=== PATIENT | male | born 1980 | race Caucasian/White ===

== ENCOUNTER 2017-08-29 15:25 | Emergency (ER) | payer BC, SELFPAY | END 2017-08-29 16:05 | disposition home or self-care (01) | LOC: UTC 15:33 | PROVIDERS: Emergency Provider Nurse Practitioner Family; Family Provider Family Medicine; PCP Family Medicine | DX: Z53.29 Procedure and treatment not carried out because of patient's decision for other reasons (principal) ==

== ENCOUNTER → 2017-09-12 12:57 | Outpatient (CLI) | payer BC, SELFPAY ==
--- NOTE | 2017-09-12 13:04 | XR_ITS ---
XR chest 2V HISTORY: Right-sided chest pain, chest wall pain, right mid pain, cough ITS.REASON: ACUTE CHEST WALL PAIN. ORDERING PHYSICIAN: Marlon Oakes MD PATIENT AGE: 37 years COMPARISON: None available FINDINGS: The heart size is normal. There is some increased density with somewhat lobular contour of the left hilum. Adenopathy or aneurysm could cause this finding. Consider chest CT with contrast for further evaluation. The right hilum has an unremarkable appearance. The lungs are clear. No acute bony anomalies. IMPRESSION: Lobular contour of the left hilum. Aneurysm or adenopathy is a consideration. Consider chest CT with contrast for further evaluation
--- NOTE | 2017-09-12 13:04 | XR_ITS ---
XR ribs RT 2V HISTORY: Right-sided chest pain ITS.REASON: ACUTE CHEST WALL PAIN ORDERING PHYSICIAN: Marlon Oakes MD PATIENT AGE: 37 years COMPARISON: None FINDINGS: Multiple views of the right ribs were obtained. There is a nondisplaced fracture involving the anterior aspect of the right seventh rib. No displaced fracture is apparent. No evidence of pneumothorax. IMPRESSION: Nondisplaced fracture anterior aspect right seventh rib
== END ==
PROVIDERS: PCP Nurse Practitioner Family; Visit Provider Family Medicine
DX: R07.89 Other chest pain (principal)
CPT/HCPCS: 71046; 71100

== ENCOUNTER → 2020-08-12 14:53 | Outpatient (CLI) | payer BC, SELFPAY ==
--- NOTE | 2020-08-12 15:01 | XR_ITS ---
PROCEDURE: XR LUMBAR SPINE MIN 4V CLINICAL INDICATION: DORSALGIA Low back pain COMPARISON: CR LS5 LUMBAR SPINE 5 VIEWS from 09/25/2015 FINDINGS: No fracture or dislocation. No lytic or blastic change. There is normal mineralization. Normal alignment. The disc spaces are well preserved. Other findings:None. IMPRESSION: Negative lumbar spine Dictated by: Feliciano Mcintyre MD 08/12/2020 17:53 Feliciano Mcintyre MD in [place] 08/12/2020 17:53
== END ==
PROVIDERS: PCP Family Medicine; Visit Provider Family Medicine
DX: M54.5 Low back pain (principal)
CPT/HCPCS: 72110

== ENCOUNTER 2020-08-19 14:53 | Emergency (ER) | payer BC, SELFPAY ==
[2020-08-19 15:00] VITALS: BP 150/91; PULSE 84; RESP 19; TEMP 36.8; O2SAT 98; BMI 30.9
--- NOTE | 2020-08-19 15:19 | HMH.EDUTC ---
[facility] [place] Clinical Impression: Nasal congestion, Encounter for laboratory testing for COVID-19 virus Disposition: Home, Self-Care Condition on Discharge: Good Instructions: DI for COVID-19 (Suspected or Confirmed ), Coronavirus Disease 2019, Preventing the Spread of Coronavirus Discharge Instructions, Guaifenesin Additional Instructions: Take medication as prescribed Return if needed FOllow up with Family Doctor if needed Straight to ER if any life threatening symptoms Prescriptions: Fluticasone Propionate [Flonase 50mcg nasal spray 16gm] 1 spr NS DAILY #1 bottle Transmission Status: Pending to [id number] guaiFENesin [Mucinex] 600 mg PO BID PRN #20 tab.er.12h PRN Reason: Cough Transmission Status: Pending to [id number] Referrals: Marlon Oakes MD [Primary Care Provider] - As needed Forms: Work/School Release Time of Disposition: 15:25 Medical Decision Making - Param Inquiry Pt receiving controlled substance: No Param was queried for this patient: No Vital Signs: 08/19/20 15:00 Temperature 98.2 F Temperature Source Oral Pulse Rate [Right Brachial] 84 Respiratory Rate 19 Blood Pressure [Right Arm] 150/91 H Blood Pressure Mean [Right Arm] 110 Blood Pressure Source [Right Arm] Automatic Cuff Blood Pressure Position [Right Arm] Sitting 02 Sat by Pulse Oximetry 98 Oxygen Delivery Method Room Air Orders (Tests/Meds): ORDERS Category Date Time Status Covid-19 Nasal PCR Sendout [facility] 08/19/20 15:08 Ordered [facility] [place] HPI - General Stated complaint: Congestion, headache Time Seen by Provider: 08/19/20 15:20 Mode of Arrival: Ambulatory Source of Information: Patient Limitations: No Limitations Description of Symptoms (Recalled from Triage Doc. by RN): PATIENT C/O NASAL CONGESTION AND HEADACHE SINCE THIS MORNING HEENT Symptoms (Recalled from RN notes): Yes Resp Symptoms (Recalled from RN notes): No Skin Symptoms (Recalled from RN notes): No MS Symptoms (Recalled from RN notes): No Functional Status (Recalled from RN notes): WNL - History of Present Illness Provider Complaint: Patient state that he has been having nasal congestion and headache since this morning States that several people at his work recently tested positive for COVID so work wanted him to come in and get tested for COVID denies fever - Related Data Previous Rx's Medication Instructions Recorded Fluticasone Propionate [Flonase 1 spr NS DAILY #1 bottle 08/19/20 50mcg nasal spray 16gm] guaiFENesin [Mucinex] 600 mg PO BID PRN #20 tab.er.12h 08/19/20 Allergies Allergy/AdvReac Type Severity Reaction Status Date / Time Penicillins Allergy Verified 08/19/20 15:14 - Worker's Comp Is this a Worker's Comp case?: No [facility] History - Hepatitis A Screen Drug use history?: No High risk sexual behaviors?: No History of sexually transmitted infection?: No Currently employed?: No Childcare worker?: No Do you have indoor plumbing?: Yes Do you have electricity?: Yes Attestation statement:: This patient has been screened for Hepatitis A risk factors. I have reviewed the patient's past medical history: Yes - Social History Alcohol Intake: never Occupational Status: other ROS Obtained: Yes All systems reviewed & no additional complaints, Yes Systems reviewed as appropriate & no additional complaints - Constitutional Constitutional: Reports system reviewed and no additional complaints, except as docu, Reports headache(s) - ENT Ears, Nose, Mouth, and Throat: Reports nasal congestion - Cardiovascular Cardiovascular: Reports system reviewed and no additional complaints, except as docu Physical Exam - General General appearance: alert, in no apparent distress - Expanded ENT Exam Nose exam: Present: other (Reports congestion no tenderness) - Respiratory Respiratory exam: Present: normal lung sounds bilaterally. Absent: respiratory distress - Cardiovascular Card
[2020-08-19 15:23] VITALS: BP 150/91; PULSE 84; RESP 19; TEMP 36.8; O2SAT 98
[2020-08-21 10:04] LABS: Covid-19 Nasal PCR Sendout P&C Negative
== END 2020-08-19 15:25 | disposition home or self-care (01) ==
PROVIDERS: Emergency Provider Nurse Practitioner; PCP Family Medicine
DX: Z20.822 Contact with and (suspected) exposure to COVID-19 (principal); R51.9 Headache, unspecified
CPT/HCPCS: 99202; G0463; U0004

== ENCOUNTER → 2020-08-29 10:24 | Outpatient (CLI) | payer BC, SELFPAY ==
--- NOTE | 2020-08-29 10:34 | US_ITS ---
PROCEDURE: US TESTICULAR CLINICAL INDICATION: SCROTAL CYST Follow-up scrotal cyst, history of scrotal cyst COMPARISON: No exams were available for comparison FINDINGS: The right testicle measures 5 x 2.6 x 3 cm. There is homogeneous echogenicity. No stone intra testicular mass. There is blood flow noted. Along the anterior and mid aspect of the right testicle there is a 5 x 2 mm cyst. The epididymis has an unremarkable appearance. The left testicle measures 5 x 2 x 3 cm with homogeneous echogenicity. Blood flow is present. No mass. No hydrocele varicocele or spermatocele apparent. IMPRESSION: 5 x 2 mm cyst along the superficial and anterior aspect of the right testicle otherwise negative scrotal ultrasound Dictated by: Feliciano Mcintyre MD 08/29/2020 12:57 Feliciano Mcintyre MD in [place] 08/29/2020 12:57
== END ==
PROVIDERS: PCP Family Medicine; Visit Provider Family Medicine
DX: L72.9 Follicular cyst of the skin and subcutaneous tissue, unspecified (principal)
CPT/HCPCS: 76870

== ENCOUNTER → 2021-08-24 13:35 | Outpatient (CLI) | payer BC, SELFPAY | PROVIDERS: Visit Provider Nurse Practitioner | DX: Z20.822 Contact with and (suspected) exposure to COVID-19 (principal) | CPT/HCPCS: C9803; U0003; U0005 ==

== ENCOUNTER → 2021-12-01 12:49 | Outpatient (POV) | payer BC, SELFPAY | PROVIDERS: Visit Provider Dermatology | DX: Z00.00 Encounter for general adult medical examination without abnormal findings (principal) ==

== ENCOUNTER 2022-12-18 00:25 | Emergency (ER) | payer BC, SELFPAY ==
--- NOTE | 2022-12-18 00:25 | ECG_ITS ---
APPROVED REPORT Exam: Resting ECG HR:91 bpm ECG Measurements Heart Rate 91 AXES MD 209 P 42 QRSd 104 QRS 32 QT 353 T 28 QTc 402 Conclusion SINUS RHYTHM INDETERMINATE AXIS ABNORMAL ECG UNCONFIRMED REPORT Electronically signed by : Tyrel Roberts MD 12/20/2022 20:24:28
[2022-12-18 00:26] VITALS: BP 171/99; PULSE 71; RESP 19; TEMP 36.6; O2SAT 97; BMI 26.4
--- NOTE | 2022-12-18 00:31 | XR_ITS ---
PROCEDURE INFORMATION: Exam: XR Chest Exam date and time: 12/18/2022 12:36 AM Age: 42 years old Clinical indication: Pain; Chest pressure; Additional info: Chest pain TECHNIQUE: Imaging protocol: Radiologic exam of the chest. Views: 2 views. COMPARISON: CR CXR2V XR chest 2V 08/19/2018 8:53 PM FINDINGS: Lungs: Unremarkable. No consolidation. Pleural spaces: Unremarkable. No pleural effusion. No pneumothorax. Heart/Mediastinum: Unremarkable. No cardiomegaly. Bones/joints: Unremarkable. IMPRESSION: No acute findings.
[2022-12-18 00:41] LABS: Basophils # 0.1 K/mm3 (0-0.2); Basophils % 0.3 % (0.1-2.0); Eosinophils # 0.2 K/mm3 (0.0-0.4); Eosinophils % 1.1 % (0.1-12.0); Hematocrit 44.5 % (42.0-52.0); Hemoglobin 14.7 g/dL (14.1-18.0); Lymphocytes # 2.3 K/mm3 (0.7-4.5); Lymphocytes % 14.8 % (10-50); Mean Corpuscular HGB Conc 32.9 g/dL (31.8-35.4); Mean Corpuscular Hemoglobin 28.2 pg (27.0-31.2); Mean Corpuscular Volume 85.5 fl (80-94); Mean Platelet Volume 7.4 fl (7.4-10.4); Monocytes # 0.2 K/mm3 (0.1-1.0); Monocytes % 1.5 % (1.7-9.3); Neutrophils # 12.6 K/mm3 (1.8-7.8); Neutrophils % 82.3 % (37.0-80.0); Platelet Count 280 K/mm3 (142-424); Red Blood Count 5.21 M/mm3 (4.60-6.20); Red Cell Distribution Width 13.6 % (11.5-17.5); White Blood Count 15.3 K/mm3 (4.8-10.8)
[2022-12-18 00:45] LABS: MANUAL DIFFERENTIAL MANUAL DIFFERENTIAL (MANUAL DIFF)
[2022-12-18 00:46] LABS: Chloride 96 mmol/L (98-107)
[2022-12-18 00:47] LABS: Potassium 3.5 mmoL/L (3.5-5.1); Sodium 141 mmol/L (136-145)
[2022-12-18 00:49] LABS: Alanine Aminotransferase 36 U/L (12-78); Albumin Level 4.5 g/dl (3.5-5.0); Alkaline Phosphatase 66 U/L (38-126); Amylase 73 U/L (30-110); Anion Gap 17.5 mEq/L (5-15); Aspartate Amino Transferase 40 U/L (17-59); Bilirubin,Total 0.4 mg/dl (0.2-1.3); Blood Urea Nitrogen 12 mg/dl (9-20); Carbon Dioxide 31 mmol/L (22.0-30.0); Creatinine Clearance Estimated 136 mL/min (50-200); Estimated Glomerular Filt Rate 93 ml/min (>60); GFR (African American) 113 ML/MIN (>60)
[2022-12-18 00:50] LABS: Albumin/Globulin Ratio 1.5 (1.1-1.8); Calcium 9.7 mg/dl (8.4-10.2); Glucose 98 mg/dl (74-100); Lipase 133 U/L (23-300); Total Protein,Serum 7.5 g/dl (6.3-8.2)
[2022-12-18 01:00] VITALS: BP 128/85; PULSE 100; RESP 22; O2SAT 95
[2022-12-18 01:06] LABS: Troponin I < 0.01 ng/ml (0.00-0.034)
[2022-12-18 01:09] LABS: Lymphocytes % 20 % (10-50); Monocytes % 1 % (2-9); Neutrophils % 78 % (42-76); Platelet Estimate Normal; Total Cells Counted 100
[2022-12-18 01:10] LABS: RBC Morphology Normal
[2022-12-18 01:30] VITALS: BP 132/74; PULSE 96; RESP 20; O2SAT 96
--- NOTE | 2022-12-18 01:33 | HMH.EDCP ---
Discharge Plan Disposition Patient Disposition: Home, Self-Care Chief Complaint: Chest Pain Prescriptions Prescriptions: No Action fenofibrate 40 mg Tablet 40 mg PO DAILY losartan 100 mg tablet 100 mg PO DAILY Rx Instructions: Take 1 tablet by mouth once daily Referrals Follow up/Referrals: Provider,Referral, MD [Primary Care Provider] - See instructions Clinical Impressions Clinical Impression: Chest pain Instructions Patient Instructions: DI for Chest Pain Discharge ED Provider: Sunny (ED)Luis F Chest Pain HPI General Chief Complaint: Chest Pain Stated Complaint: Chest Pain Time Seen by Provider: 12/18/22 01:33 Mode of Arrival: Family Vehicle Source of Information: Patient and Medical Record Limitations: No Limitations Description of Symptoms (Recalled from ER Triage Doc. by RN): 42 yo male presents with chief complaint of midsternal chest pain that has radiated up into his left shoulder and causing his left arm to feel funny . States he had ate a ham sandwich and noticed he began having chest discomfort afterwards. PMH: hypertension, high cholesterol. Chews tobacco. No recent illness. Denies any nause/vomiting/diarrhea. Afebrile. History of Present Illness HPI narrative: pt with episode of lt sided chest pain with rad to lt upper ext - no known ht dis but uses tob and has htn and pos fh - has seen card in past but has not had gxt - MD complaint: chest pain indicative of cardiac Onset (ago): hour(s) Duration: intermittent Activity at onset: during rest and after eating Pain location: left chest Severity: moderate Quality: aching Pain radiation: LUE Risk Factors for CAD: Hypertension, Hypercholesterolemia, Family Hx of CAD and Smoking Treatments prior to or on arrival for Cardiac Chest Pain: none SUSANNE Score for Non-Stemi Age of Patient: 40-49 years old Heart Rate: 90-109 bpm Systolic Blood Pressure: 120-139 mmhg Serum Creatinine: 0.80-1.19 mg/dl CHF Killip Class: I-No CHF Other Risk Factors: None Non-Stemi Risk Score: 81 Risk Stratification: 1-108 = Low Risk Related Data Home Medications Medication Instructions Recorded Confirmed fenofibrate 40 mg tablet 40 mg PO DAILY High cholesterol 12/18/22 12/18/22 losartan 100 mg tablet 100 mg PO DAILY High blood pressure 12/18/22 12/18/22 Allergies Allergy/AdvReac Type Severity Reaction Status Date / Time Penicillins Allergy Verified 06/29/22 13:38 PFSH PFSH Disclaimer: The information contained in this section may have been updated after the patient was seen, as this information can be updated by other users. Social History (Updated 06/29/22 @ 13:37 by Letha Sterling) Smoking Status: Unknown if ever smoked alcohol intake: never current occupational status: other Travel in the last 8 weeks: None ROS Obtained: Yes All systems reviewed & no additional complaints except as documented Physical Exam General General appearance: alert Head Head exam: normocephalic Eye Eye exam: Present PERRL and EOMI ENT ENT exam: Present mucous membranes moist Neck Neck exam: Present trachea midline Respiratory Respiratory exam: Present normal lung sounds bilaterally; Absent respiratory distress Cardiovascular Cardiovascular exam: Present regular rate; Absent systolic murmur or rubs Abdominal Exam Abdominal exam: Present soft Extremities Exam Extremities exam: Present full ROM Neurological Exam Neurological exam: Present alert, oriented X3 and CN II-XII intact; Absent motor sensory deficit Psychiatric Psychiatric exam: Present normal affect Skin Skin exam: Absent rash Medical Decision Making Medical Records Medical records reviewed: Yes I reviewed the patient's medical records. Param Inquiry Pt receiving controlled substance: No Vital Signs: 12/18/22 00:26 12/18/22 01:00 12/18/22 01:30 Temperature 97.8 F Temperature Source Oral Pulse Rate 100 H 96 H Pulse Rate [Right Brachial] 71 Respiratory
[2022-12-18 02:00] VITALS: BP 138/85; PULSE 93; RESP 22; O2SAT 97
--- NOTE | 2022-12-18 02:27 | PC.NURSE ---
Updated patient. Advised him that we need to draw a 2nd troponin at 0315 and the results would be back typically within that hour and we could redetermine what the best course of action would be. Patient verbalized understanding. Patient asked that the head of the bed be lowered so he could rest. Patient offered a pillow and blanket but refused. Will continue to monitor.
[2022-12-18 04:04] LABS: Troponin I < 0.01 ng/ml (0.00-0.034)
[2022-12-18 04:22] VITALS: BP 156/79; PULSE 91; RESP 19; TEMP 36.8; O2SAT 98
== END 2022-12-18 04:26 | disposition home or self-care (01) ==
PROVIDERS: Emergency Provider Emergency Medicine; PCP Family Medicine
DX: R07.9 Chest pain, unspecified (principal); M25.512 Pain in left shoulder; I10 Essential (primary) hypertension
CPT/HCPCS: 71046; 80053; 82150; 83690; 84484; 85007; 85025; 93005; 96374; 96375; 99285; J0131

== ENCOUNTER → 2023-01-11 12:53 | Outpatient (CLI) | payer BC, SELFPAY ==
[2023-01-11 13:36] LABS: Basophils # 0.1 K/mm3 (0-0.2); Basophils % 0.6 % (0.1-2.0); Eosinophils # 0.1 K/mm3 (0.0-0.4); Eosinophils % 0.8 % (0.1-12.0); Hematocrit 43.8 % (42.0-52.0); Hemoglobin 14.2 g/dL (14.1-18.0); Lymphocytes # 2.7 K/mm3 (0.7-4.5); Lymphocytes % 35.1 % (10-50); Mean Corpuscular HGB Conc 32.3 g/dL (31.8-35.4); Mean Corpuscular Hemoglobin 27.6 pg (27.0-31.2); Mean Corpuscular Volume 85.3 fl (80-94); Mean Platelet Volume 7.5 fl (7.4-10.4); Monocytes # 0.4 K/mm3 (0.1-1.0); Monocytes % 5.3 % (1.7-9.3); Neutrophils # 4.5 K/mm3 (1.8-7.8); Neutrophils % 58.2 % (37.0-80.0); Platelet Count 295 K/mm3 (142-424); Red Blood Count 5.14 M/mm3 (4.60-6.20); Red Cell Distribution Width 13.6 % (11.5-17.5); White Blood Count 7.7 K/mm3 (4.8-10.8)
[2023-01-11 14:17] LABS: Alanine Aminotransferase 27 U/L (12-78); Albumin Level 4.8 g/dl (3.5-5.0); Alkaline Phosphatase 75 U/L (38-126); Anion Gap 15.8 mEq/L (5-15); Aspartate Amino Transferase 25 U/L (17-59); Bilirubin,Indirect 0.4 mg/dL (0.0-0.9); Bilirubin,Total 0.4 mg/dl (0.2-1.3); Bilirubin,Unconjugated 0.6 mg/dL (0.0-1.1); Blood Urea Nitrogen 11 mg/dl (9-20); Calcium 9.5 mg/dl (8.4-10.2); Carbon Dioxide 30 mmol/L (22.0-30.0); Chloride 102 mmol/L (98-107); Chol/HDL Ratio 5.4 (1-3.5); Cholesterol 188 mg/dl (140-200); Estimated Glomerular Filt Rate 107 ml/min (>60); GFR (African American) 130 ML/MIN (>60); Glucose 89 mg/dl (74-100); HDL Cholesterol 35 mg/dl (40-60); Potassium 4.8 mmoL/L (3.5-5.1); Sodium 143 mmol/L (136-145); Total Protein,Serum 7.6 g/dl (6.3-8.2); Triglycerides 215 mg/dl (30-150); VLDL Cholesterol 43 mg/dL (0-40)
[2023-01-11 14:30] LABS: Free T4 (Free Thyroxine) 1.15 ng/dl (0.78-2.19)
[2023-01-11 14:48] LABS: Thyroid Stimulating Hormone 1.24 uIU/mL (0.465-4.68)
== END ==
PROVIDERS: PCP Family Medicine; Visit Provider Internal Medicine
DX: R07.9 Chest pain, unspecified (principal); R06.00 Dyspnea, unspecified; R07.89 Other chest pain; I11.9 Hypertensive heart disease without heart failure; E78.5 Hyperlipidemia, unspecified; I63.9 Cerebral infarction, unspecified; E11.9 Type 2 diabetes mellitus without complications; Z82.49 Family history of ischemic heart disease and other diseases of the circulatory system
CPT/HCPCS: 36415; 80048; 80061; 80076; 84439; 84443; 85025

== ENCOUNTER → 2023-01-20 06:23 | Outpatient (CLI) | payer BC, SELFPAY ==
--- NOTE | 2023-01-20 06:28 | NM_ITS ---
APPROVED REPORT Exam: Nuclear Stress Test Indication: HTN, HYPERLIPIDEMIA, TOB USE, FM HX, C.P., FTIGUE Patient Location: Outpatient Stress Tech: Aziza Garces ME Tech:Arianne Doan LUCRECIA RT(R)(N) Ht: 6 ft 1 in Wt: 230 lbs HR: 70 bpm BP: 128/90 mmHg BSA: 2.28 m2 TID: 1.02 BMI: 30.3 History: HTN, HYPERLIPIDEMIA, TOB USE, FM HX, C.P., FTIGUE Procedure: Patient exercised on Dave protocol 10:30 minutes and sec, resting heart rate 70 bpm, resting blood pressure 128/90 mmHg, with exercise maximum heart rate achived was 162 bpm which is 90 % of the maximum predicted heart rate and blood pressure was 190/84 mmHg. Test was stopped due to FATIGUE. Patient denied any complaint of chest pain. Patient has exercise capacity, achieved 12.8 METs of workload on treadmill, the blood pressure response to exercise was . Cardiac Stress and Resting SPECT Images: Cardiac Stress and Resting SPECT images were obtained using technetium 99m Myoview 30.3 mCi stress and 10.55 mCi at rest. Resting and stress imaging in both supine and prone positions demonstrate large sized, moderate, fixed perfusion defect in the basal to mid anterior LV wall. There is also a medium sized, mild, fixed perfusion defect in the basal to mid inferior LV wall. Gated imaging demonstrates low normal global LV systolic function. There is mild hypokinesis in the basal to mid anterior and inferior LV lara. LVEF is calculated at 50%. Conclusion: Large sized, moderate, fixed perfusion defect in the basal to mid anterior LV wall. There is also a medium sized, mild, fixed perfusion defect in the basal to mid inferior LV wall. No evidence of reversible ischemia. Gated imaging demonstrates low normal global LV systolic function. There is mild hypokinesis in the basal to mid anterior and inferior LV lara. LVEF is calculated at 50%. Electronically signed by : Bia Carlson, 01/23/2023 23:19:30
--- NOTE | 2023-01-20 09:54 | CA_ITS ---
APPROVED REPORT Exam: Exercise Treadmill Technologist: Aziza Dickerson, Ht: 6 ft 1 in Wt: 229 lbs BSA: 2.28 m2 HR: 65 bpm BP: 134/89 mmHg Rhythm: NSR Medical History Medications: Losartan,,,,, HCTZ,,,,, FeNOfibrate,,,,, Stress Test Details Test: Dave HR Resting HR: 70 bpm Max Heart Rate (APMHR): 180 bpm Max HR Achieved: 162 bpm Target HR (85% APMHR): 153 bpm % of APMHR: 90 Recovery HR: 82 bpm HR response to stress: Normal HR response to stress BP Resting BP: 128.0/90.0 mmHg Max BP: 190.0/84.0 mmHg Recovery BP: 148.0/72.0 mmHg BP response to stress: Normal blood pressure response to stress. ECG Resting ECG: NSR, possible old inferior MS Stress ECG: No change Arrhythmia: PVCs Recovery ECG: No change Recovery Arrhythmia: PVCs Clinical Exercise duration: 10:30 min Highest Stage Achieved: IV Exercise capacity: 12.8 METs Overall Exercise Capacity for Age: Good Stress ECG Conclusion The patient exercised for 10:30 on Dave Protcol, exhibiting a total of 12.8 METS. He has good exercise capacity compared to his age and sex matched peers. He demonstrated normal HR and BP response to exercise. Max HR: 155 % of PM: 86% Max BP: 190/84 METs: 12.8 Test stopped due to: SOA Symptoms: No CP. Arrhythmias/Ectopy: Occasional PVCs during stress and at recovery. ST-T Changes: No significant changes at peak stress. Conclusion: Normal GXT. Occasional PVCs were noted. Myoview images reported separately. Test Summary REST . . . . . . . Sitting REST . . . . . . . Standing REST 05:42 0.0 0.0 70 . 128/ 90 . . Stage 1 01:00 10.0 1.7 87 . . . . Stage 1 02:00 10.0 1.7 90 . . . . Stage 1 03:00 10.0 1.7 88 . 154/ 88 . . Stage 2 01:00 12.0 2.5 98 . . . . Stage 2 02:00 12.0 2.5 101 . . . . Stage 2 03:00 12.0 2.5 104 . 164/ 88 . . Stage 3 01:00 14.0 3.4 115 . . . . Stage 3 02:00 14.0 3.4 124 . . . . Stage 3 03:00 14.0 3.4 133 . 190/ 84 . . Stage 4 01:00 16.0 4.2 146 . . . . Stage 4 01:30 16.0 4.2 154 . . . Stop exercise at 10:30 RECOVERY 01:00 0.0 0.0 140 . . . . RECOVERY 02:00 0.0 0.0 115 . . . . RECOVERY 03:00 0.0 0.0 101 . 184/ 77 . . RECOVERY 04:00 0.0 0.0 87 . 183/ 77 . . RECOVERY 05:00 0.0 0.0 81 . 183/ 77 . . RECOVERY 05:49 0.0 0.0 89 . 148/ 72 . . Electronically signed by : Bia Carlson, 01/23/2023 23:14:44
== END ==
LOC: RAD 06:23
PROVIDERS: PCP Family Medicine; Visit Provider Physician Assistant
DX: R07.89 Other chest pain (principal); R07.9 Chest pain, unspecified; I10 Essential (primary) hypertension; E78.5 Hyperlipidemia, unspecified; Z82.49 Family history of ischemic heart disease and other diseases of the circulatory system
CPT/HCPCS: 78452; 93017; A9502

== ENCOUNTER → 2023-02-08 10:09 | Outpatient (CLI) | payer BC, SELFPAY | LOC: RT 10:09 | PROVIDERS: PCP Family Medicine; Visit Provider Internal Medicine | DX: R07.89 Other chest pain (principal); I10 Essential (primary) hypertension; E78.5 Hyperlipidemia, unspecified; Z82.49 Family history of ischemic heart disease and other diseases of the circulatory system | CPT/HCPCS: 93306 ==

== ENCOUNTER → 2023-03-02 07:04 | Outpatient (CLI) | payer BC, SELFPAY ==
[2023-03-02 07:38] VITALS: BP 128/65; PULSE 79; RESP 17; TEMP 36.4; O2SAT 97
[2023-03-02 07:40] VITALS: BP 128/65; PULSE 68; RESP 18; O2SAT 97; BMI 30.3
[2023-03-02 08:09] LABS: Chloride 105 mmol/L (98-107); Potassium 3.6 mmoL/L (3.5-5.1); Sodium 141 mmol/L (136-145)
[2023-03-02 08:10] VITALS: BP 141/88; PULSE 62; RESP 18; O2SAT 94
[2023-03-02 08:12] LABS: Anion Gap 11.6 mEq/L (5-15); Blood Urea Nitrogen 15 mg/dl (9-20); Carbon Dioxide 28 mmol/L (22.0-30.0); Creatinine Clearance Estimated 181 mL/min (50-200); Estimated Glomerular Filt Rate 107 ml/min (>60); GFR (African American) 130 ML/MIN (>60)
[2023-03-02 08:13] LABS: Calcium 9.3 mg/dl (8.4-10.2); Glucose 102 mg/dl (74-100)
[2023-03-02 08:35] VITALS: BP 126/79; PULSE 60; RESP 18; O2SAT 97
== END ==
LOC: RAD 07:04
PROVIDERS: PCP Family Medicine; Visit Provider Nurse Practitioner
DX: R07.89 Other chest pain (principal); I10 Essential (primary) hypertension; E78.5 Hyperlipidemia, unspecified; Z82.49 Family history of ischemic heart disease and other diseases of the circulatory system
CPT/HCPCS: 75574; 80048; Q9967

== ENCOUNTER → 2024-03-23 13:23 | Outpatient (CLI) | payer BC, SELFPAY | LOC: SL 13:24 | PROVIDERS: PCP Family Medicine; Visit Provider Family Medicine | DX: G47.33 Obstructive sleep apnea (adult) (pediatric) (principal) | CPT/HCPCS: G0399 ==

== ENCOUNTER 2024-10-29 18:40 | Emergency (ER) | payer BC, SELFPAY ==
[2024-10-29 18:51] VITALS: BP 150/98; PULSE 51; RESP 18; TEMP 36.8; O2SAT 100; BMI 31.5
--- NOTE | 2024-10-29 18:56 | PC.NURSE ---
Esdras SIMMS getting ekg on patient due to HR varying from low 40s to 70s
--- NOTE | 2024-10-29 18:58 | ECG_ITS ---
APPROVED REPORT Exam: Resting ECG HR:77 bpm ECG Measurements Heart Rate 77 AXES DC 187 P 4 QRSd 103 QRS -13 QT 407 T 11 QTc 438 Conclusion SINUS RHYTHM WITH FREQUENT VENTRICULAR PREMATURE COMPLEXES INDETERMINATE AXIS INFERIOR MYOCARDIAL INFARCTION , PROBABLY OLD [40+ ms Q WAVE AND/OR ST/T ABNORMALITY IN II/aVF] ABNORMAL ECG UNCONFIRMED REPORT Electronically signed by : Murphy Villalba, 10/29/2024 23:18:48
--- NOTE | 2024-10-29 19:16 | CT_ITS ---
PROCEDURE INFORMATION: Exam: CT Lumbar Spine Without Contrast Exam date and time: 10/29/2024 7:32 PM Age: 44 years old Clinical indication: Low back pain; Additional info: Sudden midline L spine pain, no trauma TECHNIQUE: Imaging protocol: Computed tomography of the lumbar spine without contrast. Radiation optimization: All CT scans at this facility use at least one of these dose optimization techniques: automated exposure control; mA and/or kV adjustment per patient size (includes targeted exams where dose is matched to clinical indication); or iterative reconstruction. COMPARISON: CR XR LUMBAR SPINE MIN 4V 08/12/2020 3:27 PM FINDINGS: Bones/joints: Five lumbar type vertebral bodies. Vertebral body heights and lateral alignment maintained. No destructive bony lesion. Lumbar disc heights maintained. Mild facet degeneration in the lower lumbar facet joints. Grossly the central spinal canal and neural foramina are adequate in the lumbar region. At the L4-L5 level there is a shallow central disc bulge without spinal canal or neural foraminal stenosis. At the L5-S1 level there is a shallow central disc bulge without spinal canal or neural foraminal stenosis. Soft tissues: Unremarkable. Surgical clip right abdomen noted. IMPRESSION: 1. Vertebral body heights and lateral lumbar alignment maintained. No destructive bony lesion identified. 2. Mild facet degeneration in the lower lumbar facet joints. Lumbar disc heights relatively maintained. 3. Grossly the central spinal canal and neural foramina are adequate in the lumbar region.
--- NOTE | 2024-10-29 19:20 | ED_ITS ---
Discharge Plan Disposition Patient Disposition: Home, Self-Care Prescriptions Prescriptions: New lidocaine 4 % adhesive patch,medicated 1 patch topical DAILY Qty: 5 0RF Rx Instructions: may leave on for up to 12 hrs ibuprofen 800 mg tablet 800 mg PO TID PRN (Reason: pain) 7 Days Qty: 20 0RF prednisone 50 mg tablet 50 mg PO DAILY 5 Days Qty: 5 0RF Rx Instructions: Please begin 1 day after ED visit cyclobenzaprine 5 mg tablet 5 mg PO TID PRN (Reason: muscle spasm) 5 Days Qty: 15 0RF No Action hydrochlorothiazide 12.5 mg tablet 12.5 mg PO DAILY Patient Comments: TAKE 1 TABLET BY MOUTH ONCE DAILY fenofibrate 40 mg Tablet 40 mg PO DAILY losartan 100 mg tablet 100 mg PO DAILY Rx Instructions: Take 1 tablet by mouth once daily Referrals Follow up/Referrals: Marlon Oakes MD [Primary Care Provider] - See instructions Activity Restrictions/Add. Instructions Additional Instructions/Restrictions: No evidence of an emergent medical condition identified today. Your working diagnosis is a musculoskeletal/myofascial strain. No evidence that you have any type of central [employer] [employer]IC[employer] compression that would require emergent MRI or emergent neurosurgical intervention. Please return with symptoms that we discussed. Otherwise follow-up with your primary care doctor if you are having persistent symptoms beyond a few weeks I recommend discussing getting an outpatient MRI. Otherwise this should be self-limiting. I do recommend that she rest apply ice and take symptomatic medications as discussed. Clinical Impressions Clinical Impression: Lumbar spine pain Print Language Print Language: Barb[place] Discharge ED Provider: Jhon Villalba General Adult HPI General Chief complaint: PAIN Stated complaint: lower back pain no injury Time Seen by Provider: 10/29/24 19:02 Mode of Arrival: Ambulatory Source of Information: Patient Description of Symptoms (Recalled from ER Triage Doc. by RN): Pt presents for evaluation of mid lower back pain that started at 2pm that has progressively become worse. Pt states has had episodes of this happening before, denies any injuries. History of Present Illness HPI narrative: Patient is a 44-year-old male presenting today with sudden midline lower lumbar back pain that started at around 2 PM. No definitive injury that he is aware of. States he has been having intermittent episodes over the last 6 months but usually is paraspinal in nature. Patient denies any bowel or bladder incontinence saddle anesthesia lower extremity paralysis history of injection drug use fever or cancer. Denies any other symptoms such as urinary symptoms fevers hematuria etc. Pain is worse with movement or touch. Related Data Home Medications ?Medication ?Instructions ?Recorded ?Confirmed fenofibrate 40 mg tablet 40 mg PO DAILY High cholesterol 12/18/22 03/02/23 losartan 100 mg tablet 100 mg PO DAILY High blood pressure 12/18/22 03/02/23 hydrochlorothiazide 12.5 mg tablet 12.5 mg PO DAILY High Blood 01/11/23 03/02/23 Pressure Previous Rx's ?Medication ?Instructions ?Recorded cyclobenzaprine 5 mg tablet 5 mg PO TID PRN muscle spasm 5 10/29/24 days #15 tabs ibuprofen 800 mg tablet 800 mg PO TID PRN pain 7 days #20 10/29/24 tabs lidocaine 4 % topical patch 1 patch topical DAILY #5 ea 10/29/24 prednisone 50 mg tablet 50 mg PO DAILY 5 days #5 tabs 10/29/24 Allergies Allergy/AdvReac Type Severity Reaction Status Date / Time Penicillins Allergy Verified 02/17/23 09:45 [facility] Disclaimer: The information contained in this section may have been updated after the patient was seen, as this information can be updated by other users. Medical History (Updated 10/29/24 @ 19:17 by Jhon Villalba MD) History of COVID-19 Irritable bowel syndrome (IBS) Hyperlipidemia Hypertension Surgical History (Updated 03/02/23 @ 07:34 by Karyn Su RN) History of appendectomy Family History (Updated 03/02/23 @ 07:34 by Karyn Su RN) Father Family history of myocardial infarction Family history of diabetes mellitus type II Mother Family history of stroke Social History (Updated 03/02/23 @ 07:36 by Karyn Su RN) Smoking Status: Current every day smoker tobacco type: smokeless tobacco alcohol intake: former current occupational status: employed Travel in the last 8 weeks: Inside the [place] Have you lived/traveled outside [place] in past 30 days?: No Contact w/someone who lives/traveled outside [place] past 30 days?: No Exposure to someone with infectious disease in past 14 days?: No Do you have a fever (greater than 100.4 F or 38 C)?: No Have you tested positive for COVID-19: No Exposed to someone with COVID-19 in past 14 days?: No Do you have a sore throat?: No Do you have a cough?: No Do you have any weakness?: No Do you have any diarrhea?: No Are you experiencing any unusual bleeding?: No Do you have any muscle aches/pain?: No Do you have any abdominal pain?: No Are you experiencing loss of taste or smell?: No Other Medical History Have you received the Flu Vaccine for this season: No Have you received the Pneumonia Vaccine: No ROS Obtained: Yes All systems reviewed & no additional complaints except as documented Physical Exam General General appearance: alert and in no apparent distress Respiratory Respiratory exam: Present normal lung sounds bilaterally Cardiovascular Cardiovascular exam: Present regular rate Back Exam Back 1 view image: 2 1. ttp no step-offs or deformities neurovasc intact distally good strength throughout no saddle anesthesia Neurological Exam Neurological exam: Present alert and oriented X3 Medical Decision Making Medical Records Screening: Per USPSTF and CDC recommendations, given the prevalence of disease in our region, it is our hospital?s policy to screen for HIV and viral Hepatitis for all patients aged 18 and over and those with ongoing risk factors. Param Inquiry Pt receiving controlled substance: No Vital Signs: 10/29/24 18:51 10/29/24 20:00 10/29/24 20:31 Temperature 98.3 F Temperature Source Oral Pulse Rate 83 75 Pulse Rate [Right] 51 L Respiratory Rate 18 25 H 22 Blood Pressure 153/93 H 121/75 Blood Pressure [Right Arm] 150/98 H Blood Pressure Mean [Right Arm] 115 Blood Pressure Source [Right Arm] Automatic Cuff Blood Pressure Position [Right Arm] Sitting 02 Sat by Pulse Oximetry 100 97 96 Oxygen Delivery Method Room Air Orders (Tests/Meds): ED MEDICATIONS Discontinued Medications Generic Name Dose Route Start Last Admin Trade Name Vincentq PRN Reason Stop Dose Admin Cyclobenzaprine HCl 5 mg 10/29/24 19:16 10/29/24 19:37 Cyclobenzaprine 10mg Tablet PO 10/29/24 19:17 5 mg ONCE ONE Administration Ketorolac Tromethamine 30 mg 10/29/24 19:16 10/29/24 19:36 Ketorolac 30mg/Ml Vial IM 10/29/24 19:17 30 mg ONCE ONE Administration Lidocaine 1 each 10/29/24 19:16 10/29/24 19:36 Lidocaine 5% Transdermal Patch TD 10/29/24 19:17 1 each ONCE ONE Administration Prednisone 60 mg 10/29/24 19:16 10/29/24 19:37 Prednisone 20mg Tab PO 10/29/24 19:17 60 mg ONCE ONE Administration ORDERS Category Date Time Status CT lumbar spine wo con Stat Cat Scan 10/29/24 19:16 Completed Medical Decision Narrative: 44-year-old presents today with above history and physical. Has midline nontraumatic lumbar spine tenderness. Unlikely has a pathologic fracture or significant bony abnormality but given his midline tenderness we will get a CT scan for further evaluation and management. He has no indication for an emergency MRI as he has no red flags from history of physical standpoint to suggest any type of central [facility] [employer]NICIAN compression such as cauda equina syndrome. Symptomatic medications will be given while the CT is pending. Will reassess shortly. Reassessment 9:10 PM I personally interpreted the patient CT scan and I see no evidence of any acute abnormality from the emergency standpoint. Radiology read is consistent with this as well. Return precautions emphasized patient discharged in stable condition with advised to follow-up with primary care doctor. Critical Care Critical Care Time Critical Care Time: No
[2024-10-29] MEDS: KETOROLAC 30MG/ML VIAL 30 MG IM (19:36)
[2024-10-29] MEDS: LIDOCAINE 5% TRANSDERMAL PATCH 1 EACH TD (19:36)
[2024-10-29] MEDS: CYCLOBENZAPRINE 10MG TABLET 5 MG PO (19:37)
[2024-10-29] MEDS: predniSONE 20MG TAB 60 MG PO (19:37)
[2024-10-29 20:00] VITALS: BP 153/93; PULSE 83; RESP 25; O2SAT 97
[2024-10-29 20:31] VITALS: BP 121/75; PULSE 75; RESP 22; O2SAT 96
[2024-10-29 21:12] VITALS: BP 151/94; PULSE 97; RESP 16; TEMP 37.2; O2SAT 97
== END 2024-10-29 21:14 | disposition home or self-care (01) ==
PROVIDERS: Emergency Provider Student in an Organized Health Care Education/Training Program; PCP Family Medicine
DX: M54.50 Low back pain, unspecified (principal); F17.290 Nicotine dependence, other tobacco product, uncomplicated
CPT/HCPCS: 72131; 93005; 96372; 99284; J1885